=== PATIENT | male | born 1950 | race Caucasian/White ===

== ENCOUNTER 2021-04-06 11:14 | Emergency (ER) | payer MEDICARE, OTHER ==
[~2021-04-06 11:14] MED LIST: BACTRIM DS TAB1 EACH PO; FLOMAX0.4 MG PO; HUMALOG 10100 UNITS/ SC; LANTUS INS100 UTS/M1 SC; VITAMIN D-32000 UNIT PO; ZOFRAN4 MG PO
[2021-04-06 12:50] LABS: HEMOGLOBIN 15.4 gm/dl (14.0-17.5); RED BLOOD COUNT 4.8 M/UL (4.20-5.50); WHITE BLOOD COUNT 11.1 K/UL (4.5-11.0)
[2021-04-06 13:17] LABS: BUN/CREATININE RATIO 21 (0-10)
[2021-04-06] MEDS ORDERED: PROAIR HFA8.5 GM INH (17:50)
[2021-04-06] MEDS ORDERED: ASPIRIN81 MG PO (17:50)
[2021-04-06] MEDS ORDERED: CYCLOBENZAPRINE10 MG PO (17:50)
[2021-04-06] MEDS ORDERED: MOBIC15 MG PO (17:50)
== END 2021-04-06 18:58 | disposition home or self-care (01) ==
LOC: ER1 11:14
PROVIDERS: Physician Assistant
DX: S39.012A Strain of muscle, fascia and tendon of lower back, initial encounter (principal); J40 Bronchitis, not specified as acute or chronic; I74.09 Other arterial embolism and thrombosis of abdominal aorta; E11.9 Type 2 diabetes mellitus without complications; I10 Essential (primary) hypertension; E78.5 Hyperlipidemia, unspecified; F17.200 Nicotine dependence, unspecified, uncomplicated; X58.XXXA Exposure to other specified factors, initial encounter
CPT/HCPCS: 71046; 76705; 80053; 81001; 83605; 83690; 85025; 99284; Q9967